=== PATIENT | female | born 1965 | race Caucasian/White ===

== ENCOUNTER 2017-12-09 06:00 | Day surgery (SDC) | payer OTHER ==
[2017-12-09] MEDS ORDERED: ROCURONIUM 50 MG INJ (07:00)
[2017-12-09] MEDS ORDERED: LIDOCAINE 2% (SDV) 5 ML INJ (07:00)
[2017-12-09] MEDS ORDERED: CEFAZOLIN 1 GM INJ (07:00)
[2017-12-09] MEDS ORDERED: KETOROLAC 30 MG INJ (07:00)
[2017-12-09] MEDS: LACTATED RINGER'S 1,000 ML IV (07:05)
[2017-12-09] MEDS ORDERED: MIDAZOLAM 1 MG/ML 2 ML INJ (07:21)
[2017-12-09] MEDS ORDERED: ROPIVACAINE 0.5 % 30 ML VIAL (07:21)
[2017-12-09] MEDS ORDERED: PROPOFOL 20 ML (08:28)
[2017-12-09] MEDS ORDERED: ACETAMINOPHEN 1000MG/100ML IV 100 ML (08:28)
[2017-12-09] MEDS ORDERED: morphine 10 MG INJ (08:29)
[2017-12-09] MEDS ORDERED: DEXAMETHASONE 4 MG/ML 1 ML INJ (08:58)
[2017-12-09] MEDS ORDERED: ONDANSETRON 4 MG INJ (08:58)
[2017-12-09] MEDS ORDERED: LABETALOL HCL 20MG INJ (09:02)
[2017-12-09] MEDS: POVIDONE IODINE 10% 28.4 GM OINT (09:22)
[2017-12-09] MEDS: ROPIVACAINE 0.5 % 30 ML VIAL (11:17)
[2017-12-09] MEDS ORDERED: morphine 2 MG INJ IV (11:30)
[2017-12-09] MEDS ORDERED: KETOROLAC 15 MG INJ IV (11:30)
[2017-12-09] MEDS ORDERED: ONDANSETRON 4 MG INJ IV (12:00)
[2017-12-09] MEDS ORDERED: FENTAnyl 50 MCG/ML VIAL IV ×3 (12:00)
[2017-12-09] MEDS ORDERED: HYDROmorphONE 1 MG/5 ML IV SYRINGE IV (12:00)
[2017-12-09] MEDS ORDERED: EPHEDrine SULFATE 50 MG/5 ML SYG IV (12:00)
[2017-12-09] MEDS ORDERED: MIDAZOLAM 1 MG/ML 2 ML INJ IV (12:00)
[2017-12-09] MEDS ORDERED: ALBUTEROL 0.083% (NEB) 2.5 MG/3 ML AMP HHN (12:00)
[2017-12-09] MEDS ORDERED: KETOROLAC 30 MG INJ IV (12:00)
[2017-12-09] MEDS ORDERED: DIPHENHYDRAMINE 50 MG INJ IV (12:00)
[2017-12-09] MEDS ORDERED: OXYCODONE/ACETAMINOPHEN (5/325) TAB PO ×2 (12:00)
[2017-12-09] MEDS ORDERED: LABETALOL HCL 20MG INJ IV (12:00)
[2017-12-09] MEDS ORDERED: MEPERIDINE 25 MG INJ IV (12:00)
[2017-12-09] MEDS ORDERED: hydrALAzine 20 MG INJ IV (12:00)
[2017-12-09] MEDS: HYDROmorphONE 1 MG/5 ML IV SYRINGE IV ×3 (12:05→12:38)
[2017-12-09] MEDS: METOCLOPRAMIDE 10 MG INJ IV (14:05)
== END 2017-12-09 14:57 | disposition home or self-care (01) ==
LOC: SDS 06:00
DX: S83.281D Other tear of lateral meniscus, current injury, right knee, subsequent encounter (principal); S83.511D Sprain of anterior cruciate ligament of right knee, subsequent encounter; S83.411D Sprain of medial collateral ligament of right knee, subsequent encounter; S83.521D Sprain of posterior cruciate ligament of right knee, subsequent encounter; X58.XXXD Exposure to other specified factors, subsequent encounter; M94.261 Chondromalacia, right knee
CPT/HCPCS: 29881; 73562; 82306